=== PATIENT | male | born 1940 | race Caucasian/White ===

== ENCOUNTER 2020-04-23 23:01 | Observation (INO) | payer MEDICARE, MEDICAID, SELFPAY ==
--- NOTE | ~2020-04-23 | CT_ITS ---
EXAMINATION:CT chest w con DATE: 04/24/2020 10:01 INDICATION: Right lung mass. TECHNIQUE: Computed tomography (CT) of the chest was performed with 75 mL Omnipaque 350 intravenous c ontrast. Automated exposure control and iterative reconstruction technique were employed. The dose-le ngth product (DLP) was 114.68 mGy-cm. COMPARISON: Chest CT 07/06/2009 FINDINGS: There are calcified pleural plaques on the left. There are scattered nodules and small grou ndglass opacities in left lung. There is an ill-defined right perihilar mass with invasion of the rig ht main pulmonary artery. There are scattered airspace and groundglass opacities and nodules in the r ight upper, lower, and middle lobes with volume loss. There is a small right pleural effusion with pl eural thickening. The heart size is normal. There are coronary artery calcifications. No pericardial effusion. There is fluid in the esophagus. There is a moderate-sized sliding hiatal hernia. There is wall thickening of the esophagus, likely esophagitis. There are cysts in the liver measuring up to 2. 3 cm. There are mixed lytic and sclerotic lesions involving the T5 and T6 vertebral bodies and digital x ray service engineer ior elements. There are sclerotic lesions in the T7 and T12 vertebral bodies. There are sclerotic les ions in right fifth rib. Right sixth rib is enlarged with a mixed lytic and sclerotic pattern. IMPRESSION: 1. Ill-defined right perihilar mass with invasion of right main pulmonary artery, consistent with hiren niurka bronchogenic carcinoma. 2. Bone lesions, consistent with metastatic disease. 3. Multifocal lung disease, consistent with pneumonia without or with some component of metastatic di sease. 4. Small loculated right pleural effusion with pleural thickening suspicious for malignant effusion. 5. Moderate-sized sliding hiatal hernia. Wall thickening of the esophagus is likely esophagitis. Reviewed, dictated and finalized at location A. UCTION PROOFREADER IMPRESSION: 1. Ill-defined right perihilar mass with invasion of right main pulmonary arter y, consistent with primary bronchogenic carcinoma. 2. Bone lesions, consistent with metastatic disease. 3. Multifocal lung disease, consistent with pneumonia without or with some comp onent of metastatic disease. 4. Small loculated right pleural effusion with pleural thickening suspicious fo r malignant effusion. 5. Moderate-sized sliding hiatal hernia. Wall thickening of the esophagus is li yanet esophagitis.
--- NOTE | ~2020-04-23 | CT_ITS ---
EXAMINATION: CT abdomen pelvis w con DATE: 04/24/2020 00:16 INDICATION: Vomiting. TECHNIQUE: Computed tomography (CT) of the abdomen and pelvis was performed with 100 mL Omnipaque 350 intravenous contrast. Automated exposure control and iterative reconstruction technique were employe d. The dose-length product was 202.24 mGy-cm. COMPARISON: CT abdomen and pelvis 07/06/2009 FINDINGS: The visualized portions of the lung bases demonstrate airspace opacities in right lower lob e and right middle lobe with a perihilar predominance and architectural distortion. There are calcifi ed pleural plaques on the left. There is a small right pleural effusion. The heart size is normal. Th ere are coronary artery calcifications. No pericardial effusion. There is a moderate-sized sliding hi atal hernia. There are cysts in the liver measuring up to 3.4 cm. Calcifications in the spleen are co nsistent with old granulomatous disease. The pancreas, adrenal glands, and kidneys are normal. There is a filter in the infrarenal inferior vena cava. Stool distends the rectum. There is wall thickening in the rectum, consistent with stercoral colitis. The appendix is normal. There are no pathologicall y enlarged lymph nodes. There is no free intraperitoneal fluid. There is a sclerotic lesion of right ninth rib. There is a sclerotic lesion in T12 vertebral body. Right sixth rib enlarged with a mixed l ytic and sclerotic pattern. IMPRESSION: 1. Airspace opacities in right middle lobe and right lower lobe, consistent with pneumonia. Perihilar malignancy cannot be excluded. Consider chest CT. 2. Small right pleural effusion. 3. Stercoral colitis. 4. Partially visualized right sixth rib lesion, which may be a healed fracture. Metastatic disease ca nnot be excluded. 5. Sclerotic lesions in right 9th rib and T12 vertebral body, new from 07/06/09, which may be benign b one islands or metastatic disease. 6. Moderate-sized sliding hiatal hernia. Reviewed, dictated and finalized at location A. TING DEMONSTRATOR IMPRESSION: 1. Airspace opacities in right middle lobe and right lower lobe, consistent wit h pneumonia. Perihilar malignancy cannot be excluded. Consider chest CT. 2. Small right pleural effusion. 3. Stercoral colitis. 4. Partially visualized right sixth rib lesion, which may be a healed fracture. Metastatic disease cannot be excluded. 5. Sclerotic lesions in right 9th rib and T12 vertebral body, new from 07/06/09, which may be benign bone islands or metastatic disease. 6. Moderate-sized sliding hiatal hernia.
[2020-04-23 23:02] VITALS: BP 126/87; PULSE 117; RESP 18; TEMP 36.3; O2SAT 94
--- NOTE | 2020-04-23 23:11 | ED.NAVMDI ---
HPI - Nausea/Vomiting/Diarrhea General Chief complaint: Nausea/Vomiting/Diarrhea Stated complaint: VOMITING/ABD PAIN History of Present Illness HPI Narrative: 79 yo male w/ h/o CP brought in by EMS from home for nausea and vomiting. He has reportedly had a few days of nausea and vomiting. Per EMS family reported significant weight loss recently. He is nonverbal and unable to provide history. 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 Constipation, unspecified Disease of esophagus, unspecified Gastro-esophageal reflux disease without esophagitis Peptic ulcer, site unspecified, unspecified as acute or chronic, without hemorrhage or perforation Severe intellectual disabilities Spastic quadriplegic cerebral palsy Surgical History Surgical History History of laparotomy Family History Family History Mother Hypertension Father Hypertension, Onset Age: 78 Family history of chronic obstructive pulmonary disease, Onset Age: 78 Social History Social History Smoking status: Never smoker Alcohol intake: never Living arrangements: with family Exam Const: General: no acute distress and alert Nutritional Appearance: thin HENMT: Head: normal to inspection Eyes: Pupils: Equal, round and reactive pupils present Resp: Effort & Inspection: normal respiratory effort Auscultation: clear to auscultation bilaterally Cardio: Rate: tachycardic Rhythm: regular rhythm GI: Inspection: non-distended GI Palp: Yes Soft to palpation and Yes Guarding due to palpation present (GI) Skin: General skin exam: normal color Neuro: Other: Alert. Minimal communication. Not following commands. Moving upper extremities. Extrem: Other: severe atrophy of both legs Psych: Affect: normal affect Course Vital Signs Vital signs: Vital Signs Temperature 36.3 C L 04/23/20 23:02 Pulse Rate 117 H 04/23/20 23:02 Respiratory Rate 18 04/23/20 23:02 Blood Pressure 126/87 04/23/20 23:02 Pulse Oximetry 94 04/23/20 23:02 Temperature 36.3 C L 04/23/20 23:02 Pulse Rate 100 04/24/20 01:01 Respiratory Rate 18 04/24/20 01:01 Blood Pressure 155/72 H 04/24/20 01:01 Pulse Oximetry 94 04/24/20 01:01 MDM - Nausea/Vomiting/Diarrhea MDM Narrative Medical decision making narrative: He is likely vomiting 2/2 severe constipation. He appears to have infiltrate due to aspiration. Dose of Unasyn given. [facility] asked to hold at this time. Will admit for bowel regimen and swallow evaluation. Differential Diagnosis Differential diagnosis: Likely gastroenteritis, dehydration and other (PUD, GERD, gastritis, obstruction) Medical Records Attestation: I reviewed the patient's medical records. Lab Data Attestation: I reviewed the patient's lab results. Result diagrams: 04/23/20 23:18 04/23/20 23:18 Labs: Lab Results 04/23/20 04/23/20 Range/Units 23:18 23:18 WBC 9.8 (4.5-10.0) K/mm3 RBC 5.10 (4.6-6.20) M/mm3 Hgb 14.8 (14.0-18.0) g/dL Hct 46.4 (42.0-52.0) % MCV 91.0 (80-100) fl MCH 29.0 (26-34) pg MCHC 31.9 L (32-36) g/dl RDW 12.6 (11.5-14.5) % Plt Count 338 (150-375) k/mm3 MPV 8.5 (7.4-10.4) fl Immature Gran % (Auto) 0.4 (0-0.5) % Neut % (Auto) 79.5 H (45.5-73.1)
[2020-04-23] MEDS: SODIUM CHLORIDE 0.9% IV 1,000 ML 999 ML IV CONT (23:17)
[2020-04-23 23:23] LABS: Basophils Percent Auto 0.2 % (0.2-1.2); Eosinophils Percent Auto 0.2 % (0-4.4); Hematocrit 46.4 % (42.0-52.0); Hemoglobin 14.8 g/dL (14.0-18.0); Immature Granulocyte Absolute 0.04 K/mm3 (0.00-0.031); Immature Granulocyte Percent A 0.4 % (0-0.5); Lymphocytes Absolute Auto 1.06 K/mm3 (0.9-3.2); Lymphocytes Percent Auto 10.8 % (18.3-44.2); Mean Corpuscular HGB Conc 31.9 g/dl (32-36); Mean Platelet Volume 8.5 fl (7.4-10.4); Monocytes Absolute Auto 0.9 K/mm3 (0.1-0.6); Monocytes Percent Auto 8.9 % (2.6-8.5); Neutrophils Absolute Auto 7.8 K/mm3 (1.3-6.7); Neutrophils Percent Auto 79.5 % (45.5-73.1); Platelet Count Result 338 k/mm3 (150-375); Red Cell Distribution Width 12.6 % (11.5-14.5); White Blood Count 9.8 K/mm3 (4.5-10.0)
[2020-04-23 23:37] LABS: Alanine Aminotransferase 14 U/L (4-50); Albumin Level 3.5 g/dL (3.5-5.1); Alkaline Phosphatase 201 U/L (38-126); Anion Gap 4 mmol/L (8-16); Aspartate Amino Transferase 22 U/L (17-59); Bilirubin,Total 0.5 mg/dL (0.2-1.3); Blood Urea Nitrogen 35 mg/dL (9-20); Calcium 9.3 mg/dL (8.4-10.2); Carbon Dioxide 32 mmol/L (22-30); Chloride 105 mmol/L (98-107); Estimated CRCL calculation 41 ml/min; Estimated Glomerular Filt Rate > 60; Glucose 150 mg/dL (75-110); Lipase 44 U/L (23-300); Potassium 4.4 mmol/L (3.4-5.0); Sodium 141 mmol/L (137-145)
[2020-04-24] VITALS: BP 131/71; PULSE 99; RESP 18; O2SAT 97
[2020-04-24] MEDS: LACTULOSE 20 GM/30 ML UDC PO (00:47)
[2020-04-24] MEDS: AMPICILLIN SULB 1.5 GM/NS 50ML 1.5 GM/50 ML VIAL IVPB ×2 (01:00→17:34)
[2020-04-24 01:01] VITALS: BP 155/72; PULSE 100; RESP 18; O2SAT 94
[2020-04-24] MEDS: ONDANSETRON INJ 4 MG/2 ML VIAL IV PUSH (01:01)
--- NOTE | 2020-04-24 01:11 | PM.IMHP ---
H&P: HPI History of Present Illness Date/Time: 04/24/20 01:11 Cheif Complaint: Nausea and vomiting Narrative: Cal Zepeda is a 79 year old male with past medical history of spastic quadriplegic cerebral palsy, profound intellectual disabilities, history of DVT presents to the ED brought by family. Patient unable to provide any history due to his mental disability. Information was gathered the chart review. Patient gets total care by his brother and [id number]. Patient has been dealing with issues of constipation in the past. Was recently prescribed Valium for anxiety by his PCP late February. Patient is very thin and nonverbal. Apparently family reported having weight loss. Nausea vomiting over last couple days. In the ED: Lab work stable, UA negative. CT abdomen pelvis was concerning for large stool burden in the rectum and possible aspiration pneumonia. Patient was given a dose of Unasyn in the ED. Patient admitted to observation for severe constipation and possible aspiration. 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 Constipation, unspecified Disease of esophagus, unspecified Gastro-esophageal reflux disease without esophagitis Peptic ulcer, site unspecified, unspecified as acute or chronic, without hemorrhage or perforation Severe intellectual disabilities Spastic quadriplegic cerebral palsy Surgical History Surgical History History of laparotomy Family History Family History Mother Hypertension Father Hypertension, Onset Age: 78 Family history of chronic obstructive pulmonary disease, Onset Age: 78 Social History Social History Smoking status: Never smoker Alcohol intake: never Substance use: never Substance use type: does not use Living arrangements: with family Gender identity (if verbalized by the patient): Male Spiritual care concerns: No Meds Home Medications and Allergies Home Medications Medication Instructions Recorded Confirmed Type omeprazole 40 mg capsule,delayed 40 mg PO DAILY 05/05/19 04/24/20 History release diazepam 5 mg tablet 5 mg PO TID PRN #30 tablet 02/28/20 04/24/20 Rx Allergies Allergy/AdvReac Type Severity Reaction Status Date / Time metoclopramide Allergy Unknown Skin Verified 02/28/20 10:53 Reaction Vital Signs Vital Signs - 24 hr 04/23/20 23:02 04/24/20 01:01 Temperature 36.3 C L Pulse Rate 117 H 100 Respiratory Rate 18 18 Blood Pressure 126/87 155/72 H Pulse Oximetry 94 94 Exam Narrative: Exam Narrative: - GENERAL: Pleasant male very very thin in no acute distress. Incoherent speech consistent with his intellectual disability. - EYES: EOMI. Anicteric. - HENT: Moist mucous membranes. - LUNGS: Clear to auscultation bilaterally, no wheezing, rhonchi, or rales. - CARDIOVASCULAR: Regular rate and rhythm. No murmur. No JVD. - ABDOMEN: Soft, non-tender and non-distended. - EXTREMITIES: No edema. Peripheral pulses 2+. Non-tender. Very thin legs. No muscle mass. - NEUROLOGIC: Unable to evaluate due to mental disability, no obvious neurological deficits - PSYCHIATRIC: Awake, Alert and not oriented. Appropriate mood. - SKIN: No rashes or lesions. Warm. - LYMPH: No cervical lymphadenopathy. H&P: Results Labs Labs: Short CBC 04/23/20 Range/Units 23:18 WBC 9.8 (4.5-10.0) K/mm3 Hgb 14.8 (14.0-18.0) g/dL Hct 46.4 (42.0-52.0) % Plt Count 338 (150-375) k/mm3 [facility] 04/23/20 23:18 Sodium 141 Potassium 4.4 Chloride 105 Carbon Dioxide 32 H BUN 35 H Creatinine 0.70 Glucose 150 H Calcium 9.3 Liver Functio
[2020-04-24 02:00] LABS: Add Urine Microscopic? YES; Appearance Urine Clear (Clear); Bacteria Urine Trace /hpf; Bilirubin Urine Negative (Negative); Blood Urine 1+ (Negative); Color Urine Yellow (Yellow); Glucose Urine UA Negative (Negative); Ketones Urine Trace mg/dL (Negative); Leukocyte Esterase Ur Negative LEU/UL (Negative); Mucus Urine Few /lpf; Nitrate Urine Negative (Negative); Protein Urine Negative (Negative); Squamous Epithelial Cell Urine Rare /hpf (Few)
[2020-04-24 02:01] LABS: Specific Grav Ur 1.053 (1.001-1.035)
[2020-04-24 02:03] VITALS: BP 130/74; PULSE 101; RESP 16; O2SAT 93
[2020-04-24 02:36] VITALS: BMI 13.7
[2020-04-24 02:37] VITALS: BP 120/70; PULSE 106; RESP 16; O2SAT 94
--- NOTE | 2020-04-24 02:37 | ADMGEN ---
This patient, Cal Zepeda, was admitted to Medical Room 253-01. Patient/family oriented to hospital policies and general routines including ID bracelet, bed and alarms, visiting hours, pain management, procedures, bathroom and other care routines, personal items, smoking policy, room service/diet, and visiting hours. Information on how to activate the Rapid Response Team has been discussed. Patient/Family are encouraged to report perceived risks to care and to ask questions if they do not understand what they are told or what they should do.
[2020-04-24 05:29] VITALS: BP 123/75; PULSE 97; RESP 16; TEMP 36.4; O2SAT 94
[2020-04-24 08:26] LABS: Basophils Percent Auto 0.2 % (0.2-1.2); Eosinophils Percent Auto 0.2 % (0-4.4); Hematocrit 39.5 % (42.0-52.0); Immature Granulocyte Absolute 0.04 K/mm3 (0.00-0.031); Immature Granulocyte Percent A 0.4 % (0-0.5); Lymphocytes Percent Auto 9.8 % (18.3-44.2); Mean Corpuscular HGB Conc 32.9 g/dl (32-36); Mean Platelet Volume 8.3 fl (7.4-10.4); Monocytes Absolute Auto 1.1 K/mm3 (0.1-0.6); Neutrophils Percent Auto 78.4 % (45.5-73.1); Platelet Count Result 270 k/mm3 (150-375); Red Blood Count 4.34 M/mm3 (4.6-6.20); Red Cell Distribution Width 12.7 % (11.5-14.5); White Blood Count 10.2 K/mm3 (4.5-10.0)
[2020-04-24 08:36] LABS: Magnesium 2.3 mg/dL (1.6-2.3)
[2020-04-24 08:38] LABS: Alanine Aminotransferase 11 U/L (4-50); Albumin Level 2.9 g/dL (3.5-5.1); Alkaline Phosphatase 165 U/L (38-126); Anion Gap 4 mmol/L (8-16); Aspartate Amino Transferase 18 U/L (17-59); Bilirubin,Total 0.5 mg/dL (0.2-1.3); Blood Urea Nitrogen 25 mg/dL (9-20); Calcium 8.4 mg/dL (8.4-10.2); Carbon Dioxide 27 mmol/L (22-30); Chloride 109 mmol/L (98-107); Estimated CRCL calculation 46 ml/min; Estimated Glomerular Filt Rate > 60; Glucose 121 mg/dL (75-110); Potassium 4.1 mmol/L (3.4-5.0); Sodium 140 mmol/L (137-145)
[2020-04-24] MEDS: polyethylene glycoL 3350 17 GM POWD.PACK PO (09:20)
[2020-04-24] MEDS: PANTOPRAZOLE 40 MG TABLET PO ×2 (09:20→17:34)
[2020-04-24] MEDS: DOCUSATE SODIUM 100 MG CAPSULE 200 MG PO ×2 (09:20→20:39)
--- NOTE | 2020-04-24 09:59 | PCSTNOTE ---
Please refer to the Bedside Swallow Evaluation in the EMR. Please note, silent aspiration cannot be ruled out at bedside.
[2020-04-24] MEDS: LACTULOSE ENEMA 200 GM/1,000 ML ENEMA RECTAL (10:37)
--- NOTE | 2020-04-24 11:27 | PM.IMPN ---
Progress Note: A&P Assessment and Plan (1) Metastatic lung cancer (metastasis from lung to other site): Code(s): C34.90 - Malignant neoplasm of unspecified part of unspecified bronchus or lung Status: Acute Assessment and Plan: CT chest demonstrated an ill-defined right perihilar mass with invasion of right main pulmonary artery, consistent with primary bronchogenic carcinoma and bone lesions, consistent with metastatic disease. I notified his brother and POA, Sunil, of these findings. I discussed that tissue biopsy is recommended for further characterization but his brother is unsure if he wants to proceed with this. He is considering hospice. He is going to speak with his and follow-up with me later. (2) Obstructive pneumonia: Code(s): J18.9 - Pneumonia, unspecified organism Status: Acute Assessment and Plan: CT chest shows concern for multifocal lung disease with or without a component of metastatic disease. Will treat with IV unasyn. He received 1 dose in the emergency department. Will plan to obtain sputum culture. He is currently tolerating room air. Continue to monitor. (3) Nausea & vomiting: Qualifiers: Vomiting Intractability: non-intractable Vomiting type: unspecified Qualified Code(s): R11.2 - Nausea with vomiting, unspecified Code(s): R11.2 - Nausea with vomiting, unspecified Status: Acute Assessment and Plan: Nausea and vomiting secondary likely to poor GI motility, severe constipation, and possibly metastatic cancer. He is allergic to zofran. Continue bowel regimen. Continue zofran PRN nausea. (4) Constipation: Qualifiers: Constipation type: slow transit constipation Qualified Code(s): K59.01 - Slow transit constipation Code(s): K59.00 - Constipation, unspecified Status: Acute Assessment and Plan: CT abd/pelvis demonstrated significant stool burden. Continue bowel regiment to include MiraLax, docusate, Dulcolax, enemas. He had two bowel movements today per his RN including a small stool ball. (5) Aspiration into lower respiratory tract: Qualifiers: Encounter type: initial encounter Qualified Code(s): T17.800A - Unspecified foreign body in other parts of respiratory tract causing asphyxiation, initial encounter Code(s): T17.800A - Unspecified foreign body in other parts of respiratory tract causing asphyxiation, initial encounter Status: Acute Assessment and Plan: There was concern for possible aspiration given vomiting and mental disability. He was evaluated by speech therapy and did well with good swallow initiation and strong laryngeal elevation. BUSINESS INTEGRATION ANALYST recommends regular liquids and small sips per cut. She also recommends minced and moist or pureed. Will plan to try pureed first. (6) Spastic quadriplegic cerebral palsy: Code(s): G80.0 - Spastic quadriplegic cerebral palsy Status: Chronic Assessment and Plan: Chronic, stable. Care coordination is following to ensure they have the resources they need. (7) Severe intellectual disabilities: Code(s): F72 - Severe intellectual disabilities Status: Chronic Assessment and Plan: Chronic, brother is decision maker. (8) Cachexia: Code(s): R64 - Cachexia Status: Acute Assessment and Plan: Likely secondary to metastatic lung cancer. Continue meal supplements. Print Producer input is appreciated. Subjective Date/time seen: 04/24/20 11:27 Mr. Zepeda is a 79 y.o. male with PMH significant for cerebral palsy with spastic quadriplegia, PUD with hx of esophageal perforation 8-9 years ago, and profound intellectual disability who is seen in follow-up for weight loss, nausea, and vomiting. He is unable to communicate verbally. He is comfortable. He had two bowel movements today. He has not had any further nausea or vomiting. His brother, Sunil Zepeda, i
[2020-04-24 12:11] VITALS: BMI 13.7
[2020-04-24 20:00] VITALS: BP 105/59; PULSE 86; RESP 22; TEMP 36.4; O2SAT 97
[2020-04-25] MEDS: AMPICILLIN SULB 1.5 GM/NS 50ML 1.5 GM/50 ML VIAL IVPB ×3 (00:07→12:48)
[2020-04-25 04:00] VITALS: BP 110/55; PULSE 78; RESP 22; TEMP 36.3; O2SAT 100
[2020-04-25 05:10] LABS: Basophils Percent Auto 0.7 % (0.2-1.2); Eosinophils Absolute Auto 0.2 K/mm3 (0-0.3); Eosinophils Percent Auto 2.8 % (0-4.4); Hematocrit 37.9 % (42.0-52.0); Hemoglobin 11.8 g/dL (14.0-18.0); Immature Granulocyte Absolute 0.03 K/mm3 (0.00-0.031); Immature Granulocyte Percent A 0.5 % (0-0.5); Lymphocytes Absolute Auto 1.41 K/mm3 (0.9-3.2); Lymphocytes Percent Auto 23.2 % (18.3-44.2); Mean Corpuscular HGB Conc 31.1 g/dl (32-36); Mean Corpuscular Hemoglobin 28.8 pg (26-34); Mean Corpuscular Volume 92.4 fl (80-100); Mean Platelet Volume 8.7 fl (7.4-10.4); Monocytes Absolute Auto 0.9 K/mm3 (0.1-0.6); Monocytes Percent Auto 14.1 % (2.6-8.5); Neutrophils Absolute Auto 3.6 K/mm3 (1.3-6.7); Neutrophils Percent Auto 58.7 % (45.5-73.1); Platelet Count Result 263 k/mm3 (150-375); White Blood Count 6.1 K/mm3 (4.5-10.0)
[2020-04-25 05:20] LABS: Alanine Aminotransferase 10 U/L (4-50); Albumin Level 2.8 g/dL (3.5-5.1); Alkaline Phosphatase 148 U/L (38-126); Anion Gap 1 mmol/L (8-16); Aspartate Amino Transferase 19 U/L (17-59); Bilirubin,Total 0.6 mg/dL (0.2-1.3); Blood Urea Nitrogen 24 mg/dL (9-20); Calcium 8.5 mg/dL (8.4-10.2); Carbon Dioxide 33 mmol/L (22-30); Chloride 108 mmol/L (98-107); Estimated CRCL calculation 36 ml/min; Estimated Glomerular Filt Rate > 60; Glucose 89 mg/dL (75-110); Magnesium 2.5 mg/dL (1.6-2.3); Potassium 4.4 mmol/L (3.4-5.0); Sodium 142 mmol/L (137-145)
[2020-04-25] MEDS: DOCUSATE SODIUM 100 MG CAPSULE 200 MG PO (09:47)
[2020-04-25] MEDS: PANTOPRAZOLE 40 MG TABLET PO (09:47)
[2020-04-25] MEDS: polyethylene glycoL 3350 17 GM POWD.PACK PO (09:47)
[2020-04-25 14:00] VITALS: BP 123/66; PULSE 95; RESP 18; TEMP 36.6; O2SAT 96
--- NOTE | 2020-04-25 15:28 | PM.DS ---
DS: Admitting Diagnosis Admitting Diagnosis Admitting Diagnosis: Constipation, nausea, vomiting, and weight loss DS: Discharge Diagnosis Discharge Diagnosis (1) Metastatic lung cancer (metastasis from lung to other site): Code(s): C34.90 - Malignant neoplasm of unspecified part of unspecified bronchus or lung Status: Acute Assessment and Plan: CT chest demonstrated an ill-defined right perihilar mass with invasion of right main pulmonary artery, consistent with primary bronchogenic carcinoma and bone lesions, consistent with metastatic disease. I notified his brother and POA, Sunil, of these findings. Sunil elected to proceed with hospice care and he was discharged home with [facility]. (2) Obstructive pneumonia: Code(s): J18.9 - Pneumonia, unspecified organism Status: Acute Assessment and Plan: CT chest shows concern for multifocal lung disease with or without a component of metastatic disease. He was treated with IV unasyn and discharged on PO augmentin. (3) Nausea & vomiting: Qualifiers: Vomiting Intractability: non-intractable Vomiting type: unspecified Qualified Code(s): R11.2 - Nausea with vomiting, unspecified Code(s): R11.2 - Nausea with vomiting, unspecified Status: Resolved Assessment and Plan: Nausea and vomiting secondary likely to poor GI motility, severe constipation, and possibly metastatic cancer. His nausea and vomiting resolved. (4) Constipation: Qualifiers: Constipation type: slow transit constipation Qualified Code(s): K59.01 - Slow transit constipation Code(s): K59.00 - Constipation, unspecified Status: Resolved Assessment and Plan: Resolved. CT abd/pelvis demonstrated significant stool burden. Bowel regimen was continued and he had several bowel movements. (5) Aspiration into lower respiratory tract: Qualifiers: Encounter type: initial encounter Qualified Code(s): T17.800A - Unspecified foreign body in other parts of respiratory tract causing asphyxiation, initial encounter Code(s): T17.800A - Unspecified foreign body in other parts of respiratory tract causing asphyxiation, initial encounter Status: Acute Assessment and Plan: There was concern for possible aspiration given vomiting and mental disability. He was evaluated by speech therapy and did well with good swallow initiation and strong laryngeal elevation. MUSCULOSKELETAL PHYSICIAN recommends regular liquids and small sips per cut. She also recommended minced and moist or pureed diet. (6) Spastic quadriplegic cerebral palsy: Code(s): G80.0 - Spastic quadriplegic cerebral palsy Status: Chronic (7) Severe intellectual disabilities: Code(s): F72 - Severe intellectual disabilities Status: Chronic Assessment and Plan: Chronic, brother Sunil is POA. (8) Cachexia: Code(s): R64 - Cachexia Status: Acute Assessment and Plan: Likely secondary to metastatic lung cancer. Meal supplements were encouraged. DS: Summary Hospital Course Reason for hospitalization: Nausea, vomiting, and weight loss Hospital Course: Mr. Zepeda is a 79 y.o. male with PMH significant for cerebral palsy with spastic quadriplegia, PUD with hx of esophageal perforation 8-9 years ago, and profound intellectual disability who was brought to the emergency department by his family due to nausea, vomiting, and weight loss. Initial workup in the emergency department included CT abd/pelvis which showed airspace opacities in right middle lobe and right lower lobe, consistent with pneumonia with concern for possible perihilar malignancy, small right pleural effusion, stool distending the rectum with stercoral colitis, partially visualized right sixth rib lesion, which may be a healed fracture with metastatic disease not excluded, sclerotic lesions in right 9th rib and T12 vertebral body, new from 07/06/09,
== END 2020-04-25 17:15 | disposition hospice, home (50) ==
LOC: ANHED 04-24 01:22 → ANH2MED 04-24 01:58
PROVIDERS: Physician Assistant; Admitting Provider Student in an Organized Health Care Education/Training Program; Emergency Provider Emergency Medicine; PCP Family Medicine; Visit Provider Internal Medicine
DX: C34.90 Malignant neoplasm of unspecified part of unspecified bronchus or lung (principal); C79.89 Secondary malignant neoplasm of other specified sites; J18.9 Pneumonia, unspecified organism; R11.2 Nausea with vomiting, unspecified; K59.01 Slow transit constipation; T17.800A Unspecified foreign body in other parts of respiratory tract causing asphyxiation, initial encounter; R19.7 Diarrhea, unspecified; R10.9 Unspecified abdominal pain; G80.0 Spastic quadriplegic cerebral palsy; K21.9 Gastro-esophageal reflux disease without esophagitis; K27.9 Peptic ulcer, site unspecified, unspecified as acute or chronic, without hemorrhage or perforation; F72 Severe intellectual disabilities; R64 Cachexia
CPT/HCPCS: 36415; 71260; 74177; 80053; 81001; 83690; 83735; 85025; 92610; 96361; 96365; 96366; 96375; 99285; A9270; G0378; J0295; J2405; J7030; Q9967